=== PATIENT | female | born 1945 | race Caucasian/White ===

== ENCOUNTER 2019-06-05 13:08 | Outpatient (RCR) | payer MEDICARE, MEDICAID, SELFPAY | END 2019-06-16 23:59 | disposition home or self-care (01) | LOC: LAB 13:08 | PROVIDERS: Family Provider Family Medicine; PCP Family Medicine; Visit Provider Family Medicine | DX: I48.91 Unspecified atrial fibrillation (principal); M54.5 Low back pain | CPT/HCPCS: 85610 ==

== ENCOUNTER 2019-06-13 12:38 | Observation (INO) | payer MEDICARE, MEDICAID, SELFPAY ==
[2019-06-12 11:12] VITALS: BMI 27.1
[2019-06-13] VITALS (30 sets, daily range): BP systolic 112–163; BP diastolic 71–113; PULSE 97–142; RESP 10–30; TEMP 36.1–36.6; O2SAT 95–100
[2019-06-13 07:19] LABS: Glucose Point of Care 97 mg/dL (70-110)
[2019-06-13] MEDS: sodium chloride 0.9% 1,000 ML 30 ML IV (07:32)
--- NOTE | 2019-06-13 07:48 | P.ANES_ITS ---
Pre-Anesthetic Assessment Pre-Anesthetic Assessment: Height/Weight: Height 1.7 m Weight 78.471 kg Temp Pulse Resp BP Pulse Ox 97.1 F L 97 18 149/103 99 06/13/19 07:08 06/13/19 07:08 06/13/19 07:08 06/13/19 07:08 06/13/19 07:08 Proposed Procedure: Operation Date: 06/13/19 08:00 Proposed Procedures p Total Thyroidectomy(Not Applicable) - Luke Tomlinson MD s Direct Laryngoscopy with a true vocal cord injection(Not Applicable) - Luke Tomlinson MD Last intake: Intake Last Liquid Date 06/12/19 Last Liquid Time 16:30 Last Solid Date 06/12/19 Last Solid Time 16:30 Social: Social History: No alcohol and No tobacco Exam: Pre-Anes Outpt Exam: alert, oriented x 3, clear to auscultation bilaterally and regular rate & rhythm Airway: Submandibular: WNL Cervical ROM: WNL MP: 3 Dentition: Other (ok) History/ROS: No significant history except as noted Pulmonary: Pulmonary: Asthma, COPD and [place] CV/HEM: CV/HEM: Afib, CAD, CHF, HTN, ND and PVD : : Chronic renal Insufficiency Hepatic: Hepatic: None reported GI: GI: GERD (controlled) Metabolic: Metabolic: DM and Hyperlipidemia Musc/skel: Musc/skel: Lower Back Pain and OA/DJD Neuropsych: Neuropsych: Anxiety, Depression, Neuropathy (hands and feet) and TIA Anesthetic Plan: ASA status: IV Anesthesia: Anesthesia Evaluation and Ge neral Risk of > 500 ml blood loss (7ml/kg in children): No Meds/Allergies Current Medications: Current Medications Generic Name Dose Route Start Last Admin Trade Name Freq PRN Reason Stop Dose Admin Sodium Chloride 1,000 mls @ 30 ml s/hr 06/13/19 07:00 06/13/19 07:32 Sodium Chloride 0.9% IV 06/14/19 06:59 30 mls/hr .Q24H SANDRA Administration PFSH Anesthesia PFSH: Medical History (Updated 06/13/19 @ 07:49 by Camilo Garcia MD) Atrial fibrillation (Acute) CAD (coronary artery disease) (Acute) COPD (chronic obstructive pulmonary disease) (Acute) Heart attack (Acute) Heart failure (Acute) High cholesterol (Acute) Hypertension (Acute) Transient ischemic attack (TIA) (Acute) Social History (Updated 06/12/19 @ 11:11 by Cathy Mendosa) Smoking and tobacco status: never smoked Alcohol intake: never Data Anesthesia Other Labs: Laboratory Results - last 48 hr 06/13/19 07:15 POC Glucose 97 Cardiac Studies: No Data to Display
--- NOTE | 2019-06-13 08:35 | PM.HPUD ---
H&P update H&P Update: DATE OF SURGERY/PROCEDURE: 06/13/19 DATE H&P PERFORMED: 06/06/19 H&P UPDATE INFORMATION: H&P completed within last 30 days, No changes to prior documentation and H&P to be scanned into chart PREOP DIAGNOSIS: Left thyroid nodule with new onset left true vocal cord paralysis PRIMARY INDICATION FOR PROCEDURE: Left thyroid nodule suspicious for malignancy PLANNED PROCEDURE: Operation Date: 06/13/19 08:00 Proposed Procedures p Total Thyroidectomy(Not Applicable) - Luke Tomlinson MD s Direct Laryngoscopy with a true vocal cord injection(Not Applicable) - Luke Tomlinson MD Full H&P Medications/Allergies: Current Medications: Current Medications Generic Name Dose Route Start Last Admin Trade Name Freq PRN Reason Stop Dose Admin Sodium Chloride 1,000 mls @ 30 ml s/hr 06/13/19 07:00 06/13/19 07:32 Sodium Chloride 0.9% IV 06/14/19 06:59 30 mls/hr .Q24H SANDRA Administration Perinent History: Medical/Surgical History: Medical History (Updated 06/13/19 @ 07:49 by Camilo Garcia MD) Atrial fibrillation (Acute) CAD (coronary artery disease) (Acute) COPD (chronic obstructive pulmonary disease) (Acute) Heart attack (Acute) Heart failure (Acute) High cholesterol (Acute) Hypertension (Acute) Transient ischemic attack (TIA) (Acute) Social History: Social History Smoking and tobacco status: never smoked Alcohol intake: never
[2019-06-13] MEDS: fluorescein 1 mg Strip XX (10:08)
[2019-06-13] MEDS: EPINEPHrine 1 mg/mL INJ XX (10:10)
[2019-06-13] MEDS: neomycin-poly-bacitracin oint 28 gm 1 APPLIC TOPICAL ×2 (10:12→15:28)
[2019-06-13] MEDS: ceFAZolin 1,000 mg SDV 1000 MG IRRIGATION ×3 (10:27→14:58)
--- NOTE | 2019-06-13 11:47 | PM.OP ---
Operative Report Date of procedure: 06/13/19 Pre-op Diagnosis: Left thyroid nodule with new onset left true vocal cord paralysis Post-op diagnosis: same Post-op Findings: Large, goitrous left thyroid lobe Left recurrent laryngeal nerve identified and preserved intact Parathyroid glands x 2 identified and preserved in place Procedure Done: Left Hemithyroidectomy Microdirect laryngoscopy with injection laryngoplasty of left true vocal cord Implants: Left true vocal cord gel implant (0.7mL injected into left true vocal cord) Specimens removed/disposition: Left thyroid lobe Pathology: Left thyroid lobe Surgeon: Luke Tomlinson University Internship: Naveed Simms University Internship: Mildred Arenas Anesthesia: General Estimated blood loss (mL): 100 IV fluids (mL): 1,000 Complications: None Findings: Large, Goitrous left thyroid lobe Left recurrent laryngeal nerve identified and preserved intact Parathyroid glands x 2 identified and preserved intact Condition: stable Disposition: ICU Brief History: 73 yo wf with a h/o a large left thyroid lobe nodule who recently developed left true vocal cord paralysis. The patient desires surgical therapy. Procedure: The patient was identified in the preoperative holding area and was taken to the operating room where she was placed on the operating table in the supine position. Anesthesia was achieved with general endotracheal anesthesia with the nerve integrity monitor electrodes placed on the endotracheal tube. The Nirvana nerve monitoring system was placed on the patient, and a horizontal skin incision was marked out 2 fingerbreadths above the sternal notch which was then injected with local anesthesia. The patient was then prepped and draped in the usual sterile fashion. The incision was then made with a 15 blade and carried down through skin and subcutaneous tissues with electrocautery. The dissection proceeded through the platysma muscle until the strap muscles were identified. The strap muscles were then divided in the sagittal plane in the avascular midline superiorly and inferiorly and then the strap muscles were dissected off of the left thyroid lobe. The airway was identified both visually and to palpation. The harmonic scalpel was used to dissect the thyroid isthmus off of the trachea and then was used to divide the thyroid isthmus. At this point a circumferential dissection was made of the left thyroid lobe using the Pin-Digitala dissecting hemostat. The superior pole vessels were individually dissected free and clamped with ligaclips and divided. Left thyroid lobe was then rotated medially and the dissection proceeded in the left tracheoesophageal groove until the recurrent laryngeal nerve was identified. The recurrent nerve was then traced superiorly and inferiorly and was protected as Winn's ligament was divided with microbipolar forceps. Once the left thyroid lobe was removed, it was sent for frozen section analysis which came back as multinodular goiter without evidence of malignancy. Hemostasis was achieved in the neck with bipolar cautery. The patient's wound was then irrigated with copious amount of saline and was reinspected for hemostasis which was found to be adequate. At this point Gelfoam soaked in thrombin was placed in the left tracheoesophageal groove and a MAY drain was placed in the wound. The wound was then closed with interrupted 4-0 and 5-0 Monocryl and Dermabond and Steri-Strips on the skin. At this point the table was turned 90 degrees the patient's left. A silastic tooth guard was placed on the patient's maxillary teeth, and a surgical laryngoscope was advanced down the right oral cavity gutter under direct vision until the larynx came into view. A systematic inspection was made of the larynx which appeared to be normal. 0.7 mL of the gel injection laryngoplasty implant was injected into the left thyroarytenoid muscle posteriorly and lateral to the vocal process of the arytenoid cartilage. This was done using the operative laryngoscope and a 0 degree Scott pro surgical telescope. Once this was accomplished the patient was taken off suspension and the laryngoscope was atraumatically released and removed. The procedure was then terminated and control of the patient was returned to anesthesia where she underwent an uneventful reversal of anesthesia and extubation and was taken to the recovery room in stable condition. There were no operative or anesthetic complications
[2019-06-13] MEDS: fentaNYL 50 mcg/mL INJ 2mL IVP ×2 (12:01→12:06)
[2019-06-13] MEDS: morphine 4 mg/mL SDV 1 mL 2 MG IVP ×4 (12:18→14:02)
--- NOTE | 2019-06-13 13:03 | SUR.PHASEI ---
1240 PT TO ICU PER BED REPORT VERBALLY CALLED TO JANIS RN, PT ALERT ,STATES SHE HAS NO FAMILY HERE, STATES HER PAIN IS (MUCH BETTER) AT 8 NOW, FACE SCALE 2 PT TALKATIVE WITH STAFF IN ICU, NECK UNCHANGED WITH NO SWELLING OR HEMATOMA NOTED.
[2019-06-13] MEDS: sodium chloride 0.9% 1,000 ML 100 ML IV (13:18)
--- NOTE | 2019-06-13 14:13 | PM.PN ---
Subjective Subjective: Interval history: 73 yo wf who is day of surgery s/p left hemithyroidectomy. I was contacted by nursing because increased wound swelling. The patient denies shortness of breath, and is o/w without c/o. Medications: Reviewed: Yes Vitals/I&O/Wt Last Vital Signs Temp 98 F 06/13/19 12:30 Pulse 116 H 06/13/19 12:30 Resp 16 06/13/19 14:02 BP 134/97 06/13/19 12:30 Pulse Ox 97 06/13/19 12:30 06/12/19 06/13/19 06/13/19 22:59 06:59 14:59 Intake Total 1300 / 1300 Output Total 500 / 500 Balance 800 / 800 Weight last 48 hrs Weight 78.471 kg Weight 78.471 kg Physical Exam Const: COMMON NORMALS: no apparent distress, oriented x3 and alert ORIENTATION/CONSCIOUSNESS: Yes oriented to person HENMT: COMMON NORMALS: normocephalic, head/scalp atraumatic and external nose normal HEAD & SCALP: normal to inspection, normocephalic and atraumatic FACE & SINUS: normal facial exam NOSE: external nose normal Eye: COMMON NORMALS: PERRL and conjunctivae normal GENERAL EYE: normal appearance of both eyes CONJUNCTIVA: Yes conjunctivae normal PUPIL: Yes PERRL Neck/C-Spine: COMMON NORMALS: full ROM and no lymphadenopathy OTHER: Wound Exma: there is swelling and fluctuance of the neck wound c/w hematoma. Lymph: LYMPHATIC: no lymphadenopathy noted and no lymphedema noted Chest: COMMONS NORMALS: inspection of chest normal and palpation of chest normal Resp: COMMON NORMALS: normal respiratory effort, no retractions and no use of accessory muscles Cardio: COMMON NORMALS: regular rate and regular rhythm RATE: regular rate RHYTHM: regular rhythm GI: COMMON NORMALS: normal to inspection, nondistended, normoactive bowel sounds Extremity: COMMON NORMALS: normal to inspection Neuro: COMMON NORMALS: oriented x3 and CN's II-XII intact bilaterally SENSORIUM/ORIENTATION: Yes alert and Yes oriented to person CRANIAL NERVES: Yes CN III (oculomotor), Yes CN IV (trochlear), Yes CN V (trigeminal), Yes CN (abducens) and Yes CN IX and CN X (glossopharyngeal/vagus) Skin: COMMON NORMALS: no rashes or lesions noted GENERAL SKIN EXAM: no rashes or lesions noted Urinary Catheter Management^: Engel Latex: Cath Placed During This Visit: no A&P Additional A&P Information Impression: Day of surgery s/p wound left hemithyroidectomy with an apparent wound hematoma Plan: Surgical incision and drainage with control of post operative bleeing under general anesthesia. I discussed this with the patient. She expressed understanding. Attestations Medical Necessity Statement*: The patient is admitted for observation of her airway post operatively. Coding Level of Care Code Acute Physical Plant Manager for Marina Rollins
--- NOTE | 2019-06-13 15:39 | P.OP_ITS ---
Operative Report Date of procedure: 06/13/19 Pre-op Diagnosis: Wound hematoma Pre-op Diagnosis: Wound hematoma Post-op diagnosis: same Post-op Findings: Anterior neck wound hematoma without airway obstruction Procedure Done: Incision and drainage of post op wound hematoma following left hemithyroidectomy Implants: None Specimens removed/disposition: None Pathology: none sent Surgeon: Luke Tomlinson Tester Compressed Gases: Rubina Arenas Tester Compressed Gases: Naveed Simms Anesthesia: General Estimated blood loss (mL): 100 IV fluids (mL): 500 Urine output (mL): 300 Complications: None Findings: Large, organized clot in the left/anterior neck Slow active bleeding in the inferior portion of the left thyroid bed Recurrent laryngeal nerve identified in place and intact Condition: stable Disposition: ICU Brief History: 73 yo wf who is day of surgery s/p left hemithyroidectomy who developed a post op wound hematoma. The patient presents for surgical evacuation and control of post op bleeding. Procedure: The patient was identified in the intensive care unit was taken to the operating room where she was placed on the operating table in the supine position. Anesthesia was obtained with general endotracheal anesthesia. The patient was then prepped and draped in the usual sterile fashion. The anterior neck wound was opened with Metzenbaum scissors, and a large hematoma was immediately encountered. The hematoma was evacuated with blunt finger dissection, suction, and irrigation. Once the wound had been evacuated and cleaned it was inspected sequentially for any significant bleeding. There was a steady ooze of blood from the inferior portion of the inferior thyroid bed on the left. This was controlled with medium ligaclips and bipolar cautery. The wound was then irrigated and was inspected carefully for any noted bleeding and none was noted. The wound was then packed with Gelfoam soaked in thrombin and Surgicel. A flat MAY drain was placed in the wound, and the wound was then closed with running and interrupted 4-0 Monocryl sutures subcu and 5-0 Monocryl sutures as subcuticular sutures. The wound was finally closed with Dermabond and Steri-Strips. At this point the procedure was terminated and control of the patient was returned to anesthesia where she underwent an uneventful reversal of anesthesia and extubation and was taken to the intensive care unit in stable condition. There were no operative or anesthetic complications.
--- NOTE | 2019-06-13 16:10 | PC.NURSE ---
At 1335 noted edema above incision line on anterior neck. Notified Dr. Tomlinson of edema and some drainage of blood coming from site of kevin drain. Had drained 30ml if blood from kevin and compressed at 1320. Pt had c/o of pain in head and in neck and had medicated with Morphine 2mg twice, per JUL.
--- NOTE | 2019-06-13 16:34 | PC.NURSE ---
1535 pt returned from surgery, awake alert, no further c/o pain. Neck above incision line has little to no edema now. Miller drain from neck incision connected to wall suction as ordered.
[2019-06-13] MEDS: lactated ringers 1,000 ML 100 ML IV (16:45)
[2019-06-13 17:34] LABS: Glucose Point of Care 142 mg/dL (70-110)
[2019-06-13] MEDS: ferrous sulfate EC 325 mg Tablet PO (17:49)
[2019-06-13] MEDS: topiramate 100 mg Tablet PO (17:49)
--- NOTE | 2019-06-13 19:37 | PC.NURSE ---
bedside report rcvd at this time. pt sitting up in bed resting c eyes closed even non labored respirations. incision to medial neck c kevin drain to low wall suction. 200 cc blood in container at this time. vss per cm. pt denies pain or distress. call light within reach. lincoln arnold.
--- NOTE | 2019-06-13 20:04 | PC.NURSE ---
clarification on coumadin dose from [facility] at [place]. pt currently taking 3mg M, W, F and 2mg T, TH, Sat, Sun. pharmacy notified. carol villarreal
--- NOTE | 2019-06-13 21:41 | PC.NURSE ---
msg left for dr ramirez regarding lovenox order and continuing comudin. lincoln arnold.
[2019-06-13] MEDS: enoxaparin 80 mg/0.8 mL Syringe SUBCUT (21:53)
[2019-06-14] VITALS (19 sets, daily range): BP systolic 125–156; BP diastolic 75–98; PULSE 70–171; RESP 15–25; TEMP 36.6–36.8; O2SAT 93–99
[2019-06-14] MEDS: morphine 4 mg/mL SDV 1 mL 1 MG IVP (03:08)
[2019-06-14] MEDS: lactated ringers 1,000 ML 100 ML IV ×2 (03:09→12:19)
--- NOTE | 2019-06-14 05:15 | PM.PN ---
Subjective Subjective: Interval history: 73 yo wf who is POD #1 s/p left hemithyroidectomy with injection laryngoplasty of left true vocal cord whose post op course was complicated by a post operative wound hematoma. The patient underwent surgical evacuation of the wound. She is doing well this morning. She restarted her Lovenox last night and has done well overnight. Vitals/I&O/Wt Last Vital Signs Temp 97.9 F 06/14/19 02:56 Pulse 102 H 06/14/19 04:00 Resp 25 H 06/14/19 04:00 BP 136/81 06/14/19 04:00 Pulse Ox 98 06/14/19 04:00 06/13/19 06/13/19 06/14/19 14:59 22:59 06:59 Intake Total 1300 / 1300 1050 / 2350 1000 / 3350 Output Total 500 / 500 300 / 800 Balance 800 / 800 750 / 1550 1000 / 2550 Weight last 48 hrs Weight 78.471 kg Weight 78.471 kg Physical Exam Const: COMMON NORMALS: no apparent distress and oriented x3 HENMT: COMMON NORMALS: normocephalic, head/scalp atraumatic, external ears normal, external nose normal and moist oral mucous membranes HEAD & SCALP: normal to inspection, normocephalic and atraumatic FACE & SINUS: normal facial exam NOSE: external nose normal EXTERNAL EAR: Yes external ears normal Eye: COMMON NORMALS: EOMs intact bilaterally and conjunctivae normal CONJUNCTIVA: Yes conjunctivae normal Neck/C-Spine: COMMON NORMALS: no lymphadenopathy GENERAL: Yes normal visual inspection and Yes other (The neck wound is intact and without swelling or erythema. ) Lymph: LYMPHATIC: no lymphadenopathy noted Chest: COMMONS NORMALS: inspection of chest normal Resp: COMMON NORMALS: normal respiratory effort and no use of accessory muscles Cardio: COMMON NORMALS: regular rate and regular rhythm RATE: regular rate RHYTHM: regular rhythm GI: COMMON NORMALS: normal to inspection, nondistended, normoactive bowel sounds Extremity: COMMON NORMALS: normal to inspection Neuro: COMMON NORMALS: oriented x3 and CN's II-XII intact bilaterally (The patient has persistent hoarsenss that is unchanged from preop.) Psych: COMMON NORMALS: mental status grossly normal Urinary Catheter Management^: Engel Latex: Cath Placed During This Visit: no Data Other data: Final path pending A&P Additional A&P Information Impression: 1) Left thyroid nodule with new onset left true vocal cord paralysis - now doing well s/p left hemithyroidectomy with post op wound hematoma resolved 2) h/o Atrial fibrillation - stable Plan: 1) Continued observation Anticipate discharge this afternoon Will start speech therapy as an outpatient 2) Lovenox and Coumadin restarted The patient is to f/u with her PCP to regulate her Coumadin Attestations Medical Necessity Statement*: The patient requires observation of her airway. Discharge is expected this afternoon. Coding Level of Care Code Acute Technical Support Consultant for Marina Rollins
[2019-06-14] MEDS: ferrous sulfate EC 325 mg Tablet PO ×2 (08:07→18:50)
[2019-06-14] MEDS: venlafaxine ER (24HR) 37.5 mg Capsule PO (08:07)
[2019-06-14] MEDS: docusate sodium 100 mg Capsule PO (08:07)
[2019-06-14] MEDS: pantoprazole DR 40 mg Tablet PO (08:07)
[2019-06-14] MEDS: atorvastatin 40 mg Tablet PO (08:08)
[2019-06-14] MEDS: metoprolol succinate ER (24 HR) 25 mg Tablet PO (08:08)
[2019-06-14] MEDS: topiramate 100 mg Tablet PO ×2 (08:08→18:51)
[2019-06-14] MEDS: dilTIAZem ER (24HR) 120 mg Capsule PO (08:08)
[2019-06-14] MEDS: enoxaparin 80 mg/0.8 mL Syringe SUBCUT ×2 (11:13→22:10)
[2019-06-14] MEDS: HYDROcodone-acetaminophen 5-325 mg Tablet 1 TAB PO ×2 (12:20→22:12)
--- NOTE | 2019-06-14 13:19 | PC.CHAP ---
Pastoral Care Encounter/Spiritual Assessment Type of Contact [] Declined biology teacher visit [] Patient/Family/Request visit [] Outpatient visit [] Follow-up visit [] Physician referral [] Code/Alert [] Routine visit [] Staff referral [] Actively dying [] Patient sleeping [] Family support [] [] Out of room [] Palliative care [] [] Receiving care in room [] Pre-surgical visit [] Trauma [] Long length of stay [] ICU visit [] Other: Relational/Emotional Strength [] Patient feels connected with others/family/visitors/staff [] Distress [] Loneliness/isolation [] Abandonment Spirituality of Patient [] Person of Tatiana [] Attends Methodist of their [place] [] Believes in Prayer [] Reads Bible or Islam materials [] There are Spiritual issues to be addressed Zinc Skimmer Interventions [] Prayer [] Active listening [] Non-anxious presence [] Spiritual/emotional support [] Crisis/trauma care [] Spiritual counseling [] Bereavement support [] Provided bereavement packet [] Provided Bible/devotional materials [] Provided toy/stuffed animal, coloring book to patient or family member [] Completed spiritual assessment [] Provided Communion [] Anointing/[place] [] Salvation [] Other: Impact on Illness or Injury [] Angry [] Fearful [] Anxious [] Often cries [] Exhaustion [] Unable to work [] Unable to attend jewish [] Unable to walk/stand [] Unable to read [] Unable to drive [] Unable to eat/drink [] Unable to sleep [] Unable to be with family [] Other: Summary Time spent with patient
--- NOTE | 2019-06-14 13:22 | PC.CHAP ---
Pastoral Care Encounter/Spiritual Assessment Type of Contact [] Declined outreach assistant visit [] Patient/Family/Request visit [] Outpatient visit [] Follow-up visit [] Physician referral [] Code/Alert [] Routine visit [] Staff referral [] Actively dying [] Patient sleeping [] Family support [] [] Out of room [] Palliative care [] [] Receiving care in room [] Pre-surgical visit [] Trauma [] Long length of stay [] ICU visit [] Other: Relational/Emotional Strength [] Patient feels connected with others/family/visitors/staff [] Distress [] Loneliness/isolation [] Abandonment Spirituality of Patient [] Person of Tatiana [] Attends Gnosticist of their [place]iana [] Believes in Prayer [] Reads Bible or Pentecostalism materials [] There are Spiritual issues to be addressed Title Officer Interventions [] Prayer [] Active listening [] Non-anxious presence [] Spiritual/emotional support [] Crisis/trauma care [] Spiritual counseling [] Bereavement support [] Provided bereavement packet [] Provided Bible/devotional materials [] Provided toy/stuffed animal, coloring book to patient or family member [] Completed spiritual assessment [] Provided Communion [] Anointing/[place] [] Salvation [] Other: Impact on Illness or Injury [] Angry [] Fearful [] Anxious [] Often cries [] Exhaustion [] Unable to work [] Unable to attend baptist [] Unable to walk/stand [] Unable to read [] Unable to drive [] Unable to eat/drink [] Unable to sleep [] Unable to be with family [] Other: Summary The patient was sleeping. Time spent with patient
--- NOTE | 2019-06-14 14:46 | ANE.PACU ---
 Inpatient post-anesthesia follow up: Airway intact: Yes Vital signs: Temperature 97.8 F Pulse Rate [Left] 116 Pulse Rate [Right] 97 Pulse Rate 112 Respiratory Rate 15 Blood Pressure [Le ft Arm] 134/97 Blood Pressure 132/85 Pulse Oximetry 95 Oxygen Delivery Me thod [ Room Air Current Rate & Del rock] Oxygen Delivery Me thod Room Air Oxygen Flow Rate [ Current Rate 1 & Delivery] Oxygen Flow Rate 1 Fraction of Inspir ed Oxygen Hydration adequate: Yes Nausea and vomiting: No Pain level: 3 Mental status: Baseline
[2019-06-14 16:36] LABS: INR 1.36 (0.8-1.2)
--- NOTE | 2019-06-14 16:38 | PM.PN ---
Subjective Subjective: Interval history: 73 yo wf who is POD #1 s/p Left hemithyroidectomy who reports that she is doing well. She reports that her swallowing has improved compared to preop. She reports that, while she continues to have hoarseness, it is improved compared to her preop voice. She is o/w without c/o. Vitals/I&O/Wt Last Vital Signs Temp 97.8 F 06/14/19 12:00 Pulse 112 H 06/14/19 12:00 Resp 15 06/14/19 12:00 BP 132/85 06/14/19 12:00 Pulse Ox 95 06/14/19 12:00 06/14/19 06/14/19 06/14/19 06:59 14:59 22:59 Intake Total 1000 / 3350 1396.667 / 1396.667 Output Total 850 / 1650 500 / 500 Balance 150 / 1700 896.667 / 896.667 Physical Exam Const: COMMON NORMALS: no apparent distress GENERAL APPEARANCE: cooperative, comfortable and well developed ORIENTATION/CONSCIOUSNESS: Yes awake and Yes oriented to person HENMT: COMMON NORMALS: normocephalic, head/scalp atraumatic and external nose normal HEAD & SCALP: normocephalic and atraumatic FACE & SINUS: normal facial exam NOSE: external nose normal Eye: COMMON NORMALS: conjunctivae normal CONJUNCTIVA: Yes conjunctivae normal Neck/C-Spine: COMMON NORMALS: no lymphadenopathy GENERAL: Yes other (The neck wound is intact and without swelling.) Chest: COMMONS NORMALS: inspection of chest normal and palpation of chest normal Resp: COMMON NORMALS: normal respiratory effort Cardio: COMMON NORMALS: regular rate and regular rhythm RATE: regular rate RHYTHM: regular rhythm GI: COMMON NORMALS: normal to inspection, nondistended, normoactive bowel sounds Neuro: SENSORIUM/ORIENTATION: Yes oriented to person Psych: COMMON NORMALS: mental status grossly normal Skin: COMMON NORMALS: skin turgor normal GENERAL SKIN EXAM: turgor normal Urinary Catheter Management^: Engel Latex: Cath Placed During This Visit: no Data Other data: Final path pending A&P Additional A&P Information Impression: 1) 73 yo wf who is POD #1 s/p left hemithyroidectomy doing well 2) Hoarsenss: the patient had preop left true vocal cord paralysis. Her voice and swollowing are improved following Injection Laryngoplasty of the left true vocal cord 3) Atrial Fibrillation: The patient has restarted her Lovenox and Coumadin at her preop levels Plan: 1) Post Op Left Hemithyroidectomy: the patient is to be discharged to home this afternoon. The patient is to empty her MAY drain BID and is to record output. She will f/u in my office on 06/16/19 @ 10:00 for possible drain removal. She is to contact me for any other problems. 2) Hoarseness: I recommend voice rest for one week. We will send the patient for voice therapy post operatively to see if we can improve her voice further. 3) We will obtain daily INRs at the senior care. She will continue her Lovenox until her INR is between 2 and 3. She will continue her po Coumadin at her preop level. I contacted Nunu Arthur PA-C today and she will follow Ms Tinoco as an outpatient. Attestations Medical Necessity Statement*: The patient was observed as an inpatient to monitor her airway. Coding Level of Care Code Acute Picture Booker for Marina Rollins
--- NOTE | 2019-06-14 17:42 | PC.NURSE ---
garcia catheter discontinued with cath tip intact, tolerated well, drain tube from thyroidectomy site placed on bulb per MD request. no c/o pain or distress. MMorgan RN
--- NOTE | 2019-06-14 18:15 | PC.NURSE ---
patient ready for discharge as MD orders, contacted Emmy Waller of patient d/c from her and returning to this facility, was informed by nurse Molly ZHOU that the facility will not accept patients after 400pm even if it is a returning patient. ICU charge nurse informed and patient told also. MMorgan RN
--- NOTE | 2019-06-14 18:31 | PC.NURSE ---
Dr Tomlinson [place] [facility] [place] pt to medical floor and continue all pertinent core measure orders. SHERWIN with saline lock, continue lovenox injections, po meds and regular diet, draw INR in AM and call MD with results, then may discharge back to [facility] in AM. MMorgan RN
--- NOTE | 2019-06-14 20:13 | PC.NURSE ---
report called to aric rizo at this time. pt transported to bed 261 via wc . pt oob to void prior to transfer. discussed care c dr. ramirez who agreed to leave piv out at this time. pending dc in am . steph.
--- NOTE | 2019-06-14 20:20 | PC.NURSE ---
Pt arrived to room via wheelchair from ICU, introduction of staff and aidet. Pt assisted to bed per staff, and oriented to room, bed, tv and call light systems. Assessment of pt completed pt's needs met.
[2019-06-15] VITALS: BP 158/81; PULSE 103; RESP 18; TEMP 36.5; O2SAT 96
[2019-06-15 04:00] VITALS: BP 138/89; PULSE 102; RESP 19; TEMP 36.8; O2SAT 92
--- NOTE | 2019-06-15 06:41 | P.PN_ITS ---
Subjective Subjective: Interval history: 73 yo wf who is POD #2 s/p left hemithyroidectomy for left thyroid nodule with new onset left true vocal cord paralysis. The patient reports that she is doing well this morning. She reports that her voice and swollowing are improved, and she is pleased with the results of surgery. She is without new c/o this morning. Medications: Reviewed: Yes Vitals/I&O/Wt Last Vital Signs Temp 98.2 F 06/15/19 04:00 Pulse 102 H 06/15/19 04:00 Resp 19 H 06/15/19 04:00 BP 138/89 06/15/19 04:00 Pulse Ox 92 06/15/19 04:00 06/14/19 06/14/19 06/15/19 14:59 22:59 06:59 Intake Total 1396.667 / 1396.667 480 / 1876.667 Output Total 500 / 500 400 / 900 750 / 1650 Balance 896.667 / 896.667 80 / 976.667 -750 / 226.667 Physical Exam Const: COMMON NORMALS: oriented x3 HENMT: COMMON NORMALS: normocephalic, head/scalp atraumatic and external ears normal HEAD & SCALP: normocephalic and atraumatic EXTERNAL EAR: Yes external ears normal Eye: COMMON NORMALS: conjunctivae normal CONJUNCTIVA: Yes conjunctivae normal Neck/C-Spine: GENERAL: Yes normal visual inspection, Yes trachea midline and Yes other (The neck wound is clean, dry, intact, and without swelling.) CERVICAL SPINE: Yes cervical ROM normal Lymph: LYMPHATIC: no lymphadenopathy noted Chest: COMMONS NORMALS: inspection of chest normal Resp: COMMON NORMALS: normal respiratory effort and no use of accessory muscles Cardio: COMMON NORMALS: regular rhythm and S1 normal heart sound RHYTHM: regular rhythm HEART SOUNDS: S1 normal GI: COMMON NORMALS: normal to inspection, nondistended, normoactive bowel sounds Extremity: COMMON NORMALS: normal to inspection Neuro: COMMON NORMALS: oriented x3, moves all extremities and no focal motor deficits Psych: COMMON NORMALS: mental status grossly normal, thought process normal and cooperative THOUGHT PROCESS: normal thought process Skin: COMMON NORMALS: no rashes or lesions noted and skin turgor normal GENERAL SKIN EXAM: no rashes or lesions noted and turgor normal Urinary Catheter Management^: Engel Latex: Cath Placed During This Visit: no Data Other data: Final Path Pending A&P Additional A&P Information Impression: 1) 73 yo wf who is POD #1 s/p left hemithyroidectomy doing well with final path pending. 2) H/O Atrial Fibrillation - the patient is currently on Lovenox and her preop dose of Coumadin and is stable. Plan: 1) D/C to the residential. Her MAY drain was not holding a seal and was discontinued this morning. She is to f/u with me on 06/19/2019 and as needed for any problems. I recommend voice rest for one week. 2) She is to continue her Lovenox until her INR is between 2 and 3. She is to continue her preop dose of Coumadin. She will have daily INR levels drawn in the custodial until she is off Lovenox. Her discharge planning is o/w as previously noted. Attestations Medical Necessity Statement*: The patient required inpatient care for observation of her airway. Coding Level of Care Code Acute Clinical Biostatistician for Marina Rollins
--- NOTE | 2019-06-15 06:53 | PM.OPSURHP ---
Providers/Chief Complaint Admitting Physician: Dr. Luke Tomlinson MD Referring Physican: Dr. Dev Arthur MD Primary Care Provider: Dev Arthur MD Chief Complaint: thyroidectomy Large left thyroid nodule with new onset left true vocal cord paralysis with suspicion of malignancy of the left thyroid nodule. History of Present Illness Trini Tinoco is a 73 year old female with a h/o a large left thyroid nodule who developed a new onset left true vocal cord paralysis. The patient has had negative FNA biopsies of the left thyroid nodule, but the patient was concerned about possible malignancy in the nodule given this new symptom. The patient desires surgical therapy. Review of Systems General: Reports: 10 or more systems reviewed and unremarkable except in HPI and below Medications/Allergies Home Medications Medication Instructions Recorded Confirmed Last Taken Type Laxative Feminine 5 mg PO DAILY 06/12/19 06/13/19 06/12/19 History Physicians EZ Use B-12 1 ml IM DIRECTED 06/12/19 06/13/19 06/12/19 History aspirin 81 mg PO DAILY 06/12/19 06/12/19 06/06/19 History atorvastatin 40 mg PO DAILY 06/12/19 06/13/19 06/12/19 History bisacodyl 5 mg PO DAILY 06/12/19 06/13/19 06/12/19 History diltiazem HCl 120 mg PO DAILY 06/12/19 06/13/19 06/12/19 History docusate sodium [DOK] 100 mg PO DAILY 06/12/19 06/13/19 06/12/19 History ferrous sulfate 325 mg PO BID 06/12/19 06/13/19 06/12/19 History hydrocodone-acetaminophen 1 tab PO Q4H PRN 06/12/19 06/13/19 06/12/19 History metoprolol succinate 25 mg PO DAILY 06/12/19 06/13/19 06/12/19 08:00 History nitroglycerin 0.4 mg SUBLINGUAL Q5M PRN 06/12/19 06/12/19 Unknown History nitroglycerin 0.4 mg TOPICAL DAILY 06/12/19 06/12/19 Unknown History pantoprazole 40 mg PO DAILY 06/12/19 06/13/19 06/12/19 History potassium chloride 10 meq PO DAILY 06/12/19 06/13/19 06/12/19 History topiramate 100 mg PO BID 06/12/19 06/13/19 06/12/19 History venlafaxine 37.5 mg PO DAILY 06/12/19 06/13/19 06/12/19 History warfarin 2 mg PO DAILY 06/12/19 06/12/19 06/07/19 History Allergies Allergy/AdvReac Type Severity Reaction Status Date / Time ibuprofen Allergy Unknown Verified 06/13/19 16:37 levofloxacin [From Levaquin] Allergy ADR-Nausea Verified 06/13/19 16:37 Sulfa (Sulfonamide Allergy Unknown Verified 06/13/19 16:37 Antibiotics) microdentin Allergy ADR-Nausea Uncoded 06/13/19 06:58 PFSH PFSH: Statuses (acute, chronic, etc) shown below reflect problem list status as previously entered and may not be historically accurate Medical History (Updated 06/13/19 @ 07:49 by Camilo Garcia MD) Atrial fibrillation (Acute) CAD (coronary artery disease) (Acute) COPD (chronic obstructive pulmonary disease) (Acute) Heart attack (Acute) Heart failure (Acute) High cholesterol (Acute) Hypertension (Acute) Transient ischemic attack (TIA) (Acute) Social History (Updated 06/12/19 @ 11:11 by Cathy Mendosa) Smoking and tobacco status: never smoked Alcohol intake: never Vital Signs Vitals Signs: Last Vital Signs Temp 98.2 F 06/15/19 04:00 Pulse 102 H 06/15/19 04:00 Resp 19 H 06/15/19 04:00 BP 138/89 06/15/19 04:00 Pulse Ox 92 06/15/19 04:00 Physical Exam Const: COMMON NORMALS: no apparent distress and oriented x3 HENMT: COMMON NORMALS: normocephalic, hearing grossly normal bilaterally, external ears normal, EAC's normal, TM's normal bilaterally, external nose normal, nasal mucous membranes and turbinates normal, moist oral mucous membranes and oropharynx normal HEAD & SCALP: normal to inspection and atraumatic FACE & SINUS: normal facial exam and face symmetric Eye: COMMON NORMALS: PERRL, EOMs intact bilaterally and conjunctivae normal GENERAL EYE: normal appearance of both eyes Neck/C-Spine: COMMON NORMALS: full ROM and no lymphadenopathy THYROID: asymmetrical and solitary palpable nodule on the left CAROTIDS: Yes normal carotid upstroke Lymph: LYMPHATIC: no lymphadenopathy noted Chest: COMMONS NORMALS: inspection of chest normal and palpation of chest normal Resp: COMMON NORMALS: normal respiratory effort, no retractions, no use of accessory muscles and clear to auscultation bilaterally Cardio: COMMON NORMALS: regular rate and regular rhythm GI: COMMON NORMALS: normal to inspection, nondistended, normoactive bowel sounds Extremity: COMMON NORMALS: normal to inspection and normal capillary refill Neuro: COMMON NORMALS: oriented x3, moves all extremities, no focal motor deficits and deep tendon reflexes 2+ bilaterally Psych: COMMON NORMALS: mental status grossly normal and cooperative A&P Additional A&P Information Impression: 73 yo wf with a large left thyroid nodule with new onset left true vocal cord paralysis suspicious for possible malignancy Plan: left hemithyroidectomy with possible total thyroidectomy, possible anterior neck dissection, and direct laryngoscopy with injection laryngoplasty of the left true vocal cord under general anesthesia. Coding Level of Care Code Acute Loading Machine Tool Setter for Marina Rollins
--- NOTE | 2019-06-15 06:58 | PC.NURSE ---
DR BLACKWOOD HERE TO SEE PT, DRAIN LEAKING AND DR ZURITA
[2019-06-15] MEDS: docusate sodium 100 mg Capsule PO (09:13)
[2019-06-15] MEDS: pantoprazole DR 40 mg Tablet PO (09:13)
[2019-06-15] MEDS: metoprolol succinate ER (24 HR) 25 mg Tablet PO (09:13)
[2019-06-15] MEDS: dilTIAZem ER (24HR) 120 mg Capsule PO (09:13)
[2019-06-15] MEDS: topiramate 100 mg Tablet PO (09:13)
[2019-06-15] MEDS: ferrous sulfate EC 325 mg Tablet PO (09:13)
[2019-06-15] MEDS: enoxaparin 80 mg/0.8 mL Syringe SUBCUT (09:18)
[2019-06-15] MEDS: venlafaxine ER (24HR) 37.5 mg Capsule PO (09:45)
== END 2019-06-15 10:30 | disposition skilled nursing facility (03) ==
LOC: ICU 14:18 → MEDSURG 06-14 20:14
PROVIDERS: Admitting Provider Specialist; Family Provider Family Medicine; PCP Family Medicine; Visit Provider Specialist
PROC: (CPT 60240; principal; 2019-06-13 08:00)
PROC: 0CJS8ZZ Inspection of Larynx, Via Natural or Artificial Opening Endoscopic (ICD-10-PCS; CPT 21501; 2019-06-13 08:00)
DX: E04.1 Nontoxic single thyroid nodule (principal); Z79.82 Long term (current) use of aspirin; Z79.891 Long term (current) use of opiate analgesic; I48.91 Unspecified atrial fibrillation; I25.10 Atherosclerotic heart disease of native coronary artery without angina pectoris; J44.9 Chronic obstructive pulmonary disease, unspecified; I11.0 Hypertensive heart disease with heart failure; I50.9 Heart failure, unspecified; Z86.73 Personal history of transient ischemic attack (TIA), and cerebral infarction without residual deficits; S10.93XA Contusion of unspecified part of neck, initial encounter; X58.XXXA Exposure to other specified factors, initial encounter; I25.2 Old myocardial infarction; K21.9 Gastro-esophageal reflux disease without esophagitis; E11.40 Type 2 diabetes mellitus with diabetic neuropathy, unspecified; E78.5 Hyperlipidemia, unspecified; M19.90 Unspecified osteoarthritis, unspecified site
CPT/HCPCS: 21501; 31570; 60220; 12345; 36416; 82962; 85610; 88307; 96360; 96361; 96365; 96366; 96372; 96375; G0378; J0171; J0330; J0690; J1100; J1650; J2001; J2270; J2704; J3010; J3490; J7030

== ENCOUNTER 2019-06-18 08:45 | Outpatient (RCR) | payer MEDICARE, MEDICAID, SELFPAY ==
[2019-06-18 09:19] LABS: INR 1.68 (0.8-1.2)
== END 2019-07-15 23:59 | disposition home or self-care (01) ==
LOC: LAB 08:45
PROVIDERS: Family Provider Family Medicine; PCP Family Medicine; Visit Provider Family Medicine
DX: I48.91 Unspecified atrial fibrillation (principal)
CPT/HCPCS: 85610

== ENCOUNTER → 2020-05-15 15:49 | Outpatient (BNVA) | payer MEDICARE, MEDICAID, SELFPAY | PROVIDERS: Family Provider Family Medicine; PCP Family Medicine; Visit Provider Nurse Practitioner Family | DX: N39.0 Urinary tract infection, site not specified (principal) | CPT/HCPCS: 81003; 87077; 87086; 87184 ==

== ENCOUNTER 2020-10-18 10:20 | Outpatient (CLI) | payer MEDICARE, MEDICAID, SELFPAY ==
--- NOTE | 2020-10-18 10:25 | XR_ITS ---
WS: [id number] Chest 2 views, 10/18/2020 Clinical Data: R06.02 - Shortness of breath Comparison: Portable chest, 04/18/2018. Findings: No nodules, masses or effusions are seen. The heart is normal. The pulmonary vascularity is not increased. No pneumonia or pneumothorax is seen. The aortic arch and descending aorta show tortu osity There is a hiatal hernia behind the heart. XR/XR chest 2V* [id number] Impression: Atherosclerosis.
== END 2020-10-18 10:21 | disposition home or self-care (01) ==
PROVIDERS: Family Provider Family Medicine; PCP Family Medicine; Visit Provider Nurse Practitioner Family
DX: R06.02 Shortness of breath (principal); I48.11 Longstanding persistent atrial fibrillation; I70.90 Unspecified atherosclerosis
CPT/HCPCS: 71046

== ENCOUNTER 2020-12-06 13:20 | Outpatient (CLI) | payer MEDICARE, MEDICAID, SELFPAY ==
--- NOTE | 2020-12-06 13:30 | USCV_ITS ---
Trini Tinoco Age: 75 Gender: F : 1945 Exam Date: 12/06/2020 13:51 Ordering Phys: Leigha Angel Technologist: Maria Fernanda Smart Exam Location: [facility] [place] Indication: shortness of breath BP: / HR: 64 Rhythm: Sinus Technical Quality: Good MEASUREMENTS (Male / Female) Normal Values 2D ECHO LV Diastolic Diameter PLAX 3.9 cm 4.2 - 5.9 / 3.9 - 5.3 cm LV Systolic Diameter PLAX 2.9 cm IVS Diastolic Thickness 1.2 cm 0.6 - 1.0 / 0.6 - 0.9 cm IVS Systolic Thickness 1.1 cm LVPW Diastolic Thickness 0.7 cm 0.6 - 1.0 / 0.6 - 0.9 cm LVPW Systolic Thickness 1.5 cm LVOT Diameter 2.0 cm LV Ejection Fraction 2D Teich 51.9 % LV Ejection Fraction MOD 2C 77.3 % LV Ejection Fraction 2C AL 76.9 % LA Diameter 4.1 cm LA Width 3.6 cm LA Height 5.5 cm RA Width 5.6 cm RA Height 5.7 cm Aorta at Sinotubular Diameter 3.6 cm M-MODE LV Diastolic Diameter MM 3.8 cm 4.2 - 5.9 / 3.9 - 5.3 cm LV Systolic Diameter MM 2.7 cm LV Ejection Fraction MM Teich 57.0 % IVS Diastolic Thickness MM 1.1 cm 0.6 - 1.0 / 0.6 - 0.9 cm IVS Systolic Thickness MM 0.9 cm LVPW Diastolic Thickness MM 0.7 cm 0.6 - 1.0 / 0.6 - 0.9 cm LVPW Systolic Thickness MM 1.6 cm Aortic Annulus Diameter 3.1 cm LA Ao Ratio MM 1.4 MV E Point Septal Separation 0.8 cm DOPPLER AV Peak Velocity 94.0 cm/s LVOT Peak Velocity 67.0 cm/s AV Area Cont Eq vti 2.1 cm squared AV Area Cont Eq pk 2.2 cm squared MV Peak Velocity 97.0 cm/s MV Area PHT 5.1 cm squared Mitral E to A Ratio 2.7 MV E' Velocity 65.0 cm/s Mitral E to MV E' Ratio 8.5 Mitral E to LV E' Lateral Ratio 8.2 Mitral E to LV E' Septal Ratio 8.9 TR Peak Velocity 265.9 cm/s TR Peak Gradient 28.3 mmHg TR Mean Velocity 180.3 cm/s TR Mean Gradient 14.1 mmHg TR Velocity Time Integral 74.4 cm Right Atrial Pressure 3.0 mmHg Pulmonary Artery Systolic Pressu 31.3 mmHg PV Peak Velocity 50.0 cm/s RV Acceleration Time 0.1 s RV Ejection Time 0.3 s RV AcT/ET 0.4 FINDINGS Left Ventricle Normal left ventricular size, systolic function and wall thickness, with no regional wall motion abnormalities. Left ventricular ejection fraction is estimated at 65 %. Grade II diastolic dysfunction, moderately elevated filling pressures. Right Ventricle Mildly increased right ventricular size. Normal right ventricular systolic function. Right ventricular systolic pressure 41 mmHg. Right Atrium Moderately increased right atrial size. Right atrial pressure estimated at 3 mm Hg. Left Atrium Moderately increased left atrial size. Mitral Valve Mildly thickened mitral valve. No mitral valve stenosis. Mild to moderate mitral valve regurgitation. Aortic Valve Structurally normal trileaflet aortic valve. No aortic valve stenosis. Moderate aortic valve regurgitation. Tricuspid Valve Structurally normal tricuspid valve. No tricuspid valve stenosis. Severe tricuspid valve regurgitation. Pulmonic Valve Structurally normal pulmonic valve. No pulmonary valve stenosis. Mild pulmonary valve regurgitation. Pericardium Trivial pericardial effusion. Aorta Normal size aortic root and proximal ascending aorta. Normal sized inferior vena cava with normal respiratory variations. CONCLUSIONS 1. Normal left ventricular size, systolic function and wall thickness, with no regional wall motion abnormalities. Left ventricular ejection fraction is estimated at 65 %. Grade II diastolic dysfunction, moderately elevated filling pressures. 2. Mildly increased right ventricular size. Normal right ventricular systolic function. 3. Mild pulmonary hypertension with pulmonary artery pressure estimated at 41 mm Hg. 4. Severe tricuspid valve regurgitation. 5. Moderate aortic and mild to moderate mitral valve regurgitation. 6. Trivial pericardial effusion. 7. When compared to previous study dated 12/29/2013, there is severe tricuspid regurgitation now. Emani Grady MD (Electronically Signed) Final Date: 06 December 2020 19:24 S
== END 2020-12-06 13:21 | disposition home or self-care (01) ==
LOC: RAD 13:25
PROVIDERS: PCP Family Medicine; Visit Provider Nurse Practitioner Family
DX: R06.02 Shortness of breath (principal); I27.20 Pulmonary hypertension, unspecified; I08.3 Combined rheumatic disorders of mitral, aortic and tricuspid valves; I31.3 Pericardial effusion (noninflammatory)
CPT/HCPCS: 93306

== ENCOUNTER 2020-12-11 08:43 | Outpatient (CLI) | payer MEDICARE, MEDICAID, SELFPAY ==
[2020-12-11 09:00] VITALS: BMI 27.3
--- NOTE | 2020-12-11 10:01 | ECG_ITS ---
[facility] [place] Date: 2020-12-11 Pat Name: Trini Tinoco Department: Room: Gender: Female Front End Developer: : 1945 Requested By: Leigha Angel Order Number: [id number] Yasmeen MD: Clement Murrieta M.D. Interpretive Statements NAME OF STUDY: LEXISCAN SESTAMIBI STRESS TEST INDICATION: Shortness of Breath, PROCEDURE: At the baseline, the EKG revealed atrial fibrillation with a controlled ventricular response rate of 75 bpm. Poor R wave progression. Features of possible old anteroseptal myocardial infarction. Left axis deviation. Nonspecific T wave changes.. The baseline blood pressure was 152/89 mm Hg with a heart rate of 75 beats/min. Lexiscan was infused over a period of 20 seconds. A total of 0.4 milligrams of Lexiscan was infused. The stress phase was continued for a total of 5 minutes. Heart rate at the end of the stress phase was 92 with a blood pressure 124/76. The EKG at the peak infusion revealed no significant changes. Sestamibi was injected 20 seconds after the Lexiscan infusion. Blood pressure at the end of the recovery phase was 133/82 with a heart rate of 90 per minute. CONCLUSION: 1. No significant EKG changes with the LexiScan infusion 2. No LexiScan induced chest pain or cardiac arrhythmia 3. Normal blood pressure and heart rate response 4. Sestamibi/sestamibi perfusion scan pending; see separate report. Electronically Signed On 12-13-2020 9:44:31 CDT by Clement Murrieta M.D. [id number]
--- NOTE | 2020-12-11 10:02 | NMCV_ITS ---
NM kelly perf SPECT r/s* [id number] Trini Tinoco Age: 75 Gender: F : 1945 Exam Date: 12/11/2020 10:03 Ordering Phys: Leigha Angel Technologist: SONIA Faith Exam Location: [facility] Indications: SOB STRESS TEST Please see separate stress test report in Ephiphany for full findings IMAGE PROTOCOL Rest/Stress 1 Lexiscan Day Radiopharmaceutical Dose (mCi) Administration Site Administered by Rest: Tc-99m 10.9 IV SONIA Faith Sestamibi Stress:Tc-99m 32.8 IV SONIA Faith Sestamibi Rest: 11-Dec-2020 60 Discovery 630 Stress: 11-Dec-2020 45 Discovery 630 0.4mg Lexiscan. Images obtained in supine and prone position. SPECT RESULTS Technical Quality: Good Raw Data Analysis: Normal Image Corrections: Patient motion artifact - motion correction applied to stress images. Patient was trouble laying still due to hip pain Summed Stress Score: 2 Summed Rest Score: 2 Summed Difference Score: 0 PERFUSION FINDINGS Small area of decreased tracer uptake was noted in the apical lateral region and LV apex. No significant reversibility was noted in these regions FUNCTIONAL RESULTS (calculated via Gated SPECT) Stress Image LV EF (%): 64 Stress EDV (mL):69 TID: 0.97 Stress ESV (mL):25 FUNCTIONAL FINDINGS: Segmental wall motion analysis revealing mild hypokinesia of the LV apex IMPRESSIONS 1. Myocardial perfusion imaging revealing a small area of persistent decreased tracer uptake in the apical lateral and LV apex suggestive of myocardial scarring versus attenuation artifact. 2. Normal LV ejection fraction of 64%. 3. LV wall motion analysis revealing mild hypokinesia of the LV apex. 4. Normal LV volume No significant coronary ischemia, based on the above findings Dr Clement Murrieta MD FACC (Electronically Signed) Final Date: 12 December 2020 08:24 S
[2020-12-11] MEDS: regadenoson 0.4 Mg/5 ml Syringe IVP (10:46)
[2020-12-11 11:00] VITALS: BP 133/82; PULSE 88
== END 2020-12-11 08:44 | disposition home or self-care (01) ==
LOC: CDL 08:46
PROVIDERS: PCP Family Medicine; Visit Provider Nurse Practitioner Family
DX: R06.02 Shortness of breath (principal)
CPT/HCPCS: 78452; 93017; A9500; J2785

== ENCOUNTER → 2021-01-14 12:47 | Outpatient (BNVA) | payer MEDICARE, MEDICAID, SELFPAY | PROVIDERS: PCP Family Medicine; Visit Provider Urology | DX: N39.0 Urinary tract infection, site not specified (principal) | CPT/HCPCS: 81003; 87077; 87086; 87184 ==

== ENCOUNTER 2021-04-27 12:35 | Outpatient (CLI) | payer MEDICARE, MEDICAID, SELFPAY ==
[2021-04-27 13:05] LABS: INR 1.19 (0.8-1.2)
== END 2021-04-27 12:36 | disposition home or self-care (01) ==
LOC: LAB 12:39
PROVIDERS: PCP Family Medicine; Visit Provider Physician Assistant
DX: I10 Essential (primary) hypertension (principal)
CPT/HCPCS: 85610

== ENCOUNTER → 2021-09-23 10:34 | Outpatient (BNVA) | payer MEDICARE, MEDICAID, SELFPAY | PROVIDERS: PCP Family Medicine; Visit Provider Otolaryngology | DX: J38.01 Paralysis of vocal cords and larynx, unilateral (principal); R13.10 Dysphagia, unspecified; R49.0 Dysphonia | CPT/HCPCS: 31575; 99205 ==

== ENCOUNTER → 2021-12-16 08:22 | Outpatient (BNVA) | payer MEDICARE, MEDICAID, SELFPAY | PROVIDERS: PCP Family Medicine; Visit Provider Otolaryngology | DX: H91.93 Unspecified hearing loss, bilateral (principal) | CPT/HCPCS: 99213 ==

== ENCOUNTER → 2022-01-15 12:48 | Outpatient (BNVA) | payer MEDICARE, MEDICAID, SELFPAY | PROVIDERS: PCP Family Medicine; Visit Provider Nurse Practitioner Family | DX: N39.0 Urinary tract infection, site not specified (principal) | CPT/HCPCS: 81003; 99213 ==

== ENCOUNTER 2022-02-20 09:54 | Outpatient (CLI) | payer MEDICARE, MEDICAID, SELFPAY ==
--- NOTE | 2022-02-20 10:00 | FL_ITS ---
WS: [id number] FL barium swallow modifd [id number] REASON FOR EXAM: Recent neck surgery. Rule out cervical esophageal abnormality. FLUOROSCOPY TIME: 2min [id number] # OF SPOT FILMS: 1 FINDINGS: Examination was supervised by the speech therapy department. The patient in the upright position, the swallowing of varying consistency barium was monitored and r ecorded fluoroscopically. No aspiration was identified. Detailed analysis and report of the swallowing will be rendered by the speech therapy department. FL/FL barium swallow modifd [id number] IMPRESSION: Modified barium swallow as above.
== END 2022-02-20 09:55 | disposition home or self-care (01) ==
LOC: RAD 09:54
PROVIDERS: PCP Family Medicine; Visit Provider Otolaryngology
DX: R13.10 Dysphagia, unspecified (principal)
CPT/HCPCS: 74230; 92611

== ENCOUNTER → 2022-09-21 13:11 | Outpatient (BNVA) | payer MEDICARE, MEDICAID, SELFPAY | PROVIDERS: PCP Family Medicine; Visit Provider Internal Medicine | DX: I25.10 Atherosclerotic heart disease of native coronary artery without angina pectoris (principal); I48.11 Longstanding persistent atrial fibrillation; I11.0 Hypertensive heart disease with heart failure; I50.32 Chronic diastolic (congestive) heart failure; Z79.01 Long term (current) use of anticoagulants | CPT/HCPCS: 36415; 80048; 83880 ==

== ENCOUNTER → 2022-09-21 13:11 | Outpatient (BNVA) | payer MEDICARE, MEDICAID, SELFPAY | PROVIDERS: PCP Family Medicine; Visit Provider Internal Medicine | DX: I25.10 Atherosclerotic heart disease of native coronary artery without angina pectoris (principal); I48.11 Longstanding persistent atrial fibrillation; I11.0 Hypertensive heart disease with heart failure; I50.32 Chronic diastolic (congestive) heart failure; Z79.01 Long term (current) use of anticoagulants | CPT/HCPCS: 99214 ==

== ENCOUNTER → 2022-10-26 13:10 | Outpatient (BNVA) | payer MEDICARE, MEDICAID, SELFPAY | PROVIDERS: PCP Family Medicine; Referring Provider Dermatology; Visit Provider Specialist | DX: M17.11 Unilateral primary osteoarthritis, right knee (principal); M21.061 Valgus deformity, not elsewhere classified, right knee | CPT/HCPCS: 20610; 73560; 73565; 99204; J1100; J2795; J3301 ==

== ENCOUNTER → 2023-02-04 10:10 | Outpatient (BNVA) | payer MEDICARE, MEDICAID, SELFPAY | PROVIDERS: PCP Family Medicine; Visit Provider Specialist | DX: M17.11 Unilateral primary osteoarthritis, right knee (principal); Z71.89 Other specified counseling | CPT/HCPCS: 20610; J1100; J2795; J3301 ==

== ENCOUNTER → 2023-03-08 10:30 | Outpatient (BNVA) | payer MEDICARE, MEDICAID, SELFPAY | PROVIDERS: PCP Family Medicine; Visit Provider Specialist | DX: M17.0 Bilateral primary osteoarthritis of knee | CPT/HCPCS: 73560; 73565; 99214; J1100; J2795; J3301 ==

== ENCOUNTER → 2023-06-28 12:19 | Outpatient (BNVA) | payer MEDICARE, MEDICAID, SELFPAY | PROVIDERS: PCP Family Medicine; Visit Provider Internal Medicine | DX: I25.10 Atherosclerotic heart disease of native coronary artery without angina pectoris (principal); I48.11 Longstanding persistent atrial fibrillation; I11.0 Hypertensive heart disease with heart failure; I50.32 Chronic diastolic (congestive) heart failure; Z79.01 Long term (current) use of anticoagulants; Z79.82 Long term (current) use of aspirin | CPT/HCPCS: 99214 ==

== ENCOUNTER → 2023-07-09 08:54 | Outpatient (BNVA) | payer MEDICARE, MEDICAID, SELFPAY | PROVIDERS: PCP Family Medicine; Visit Provider Specialist | DX: M17.11 Unilateral primary osteoarthritis, right knee (principal); M21.061 Valgus deformity, not elsewhere classified, right knee | CPT/HCPCS: 20610; J1100; J2795; J3301 ==

== ENCOUNTER 2023-08-12 07:26 | Outpatient (CLI) | payer MEDICARE, MEDICAID, SELFPAY ==
[2023-08-12 08:03] VITALS: BMI 25.2
--- NOTE | 2023-08-12 08:06 | ECG_ITS ---
[facility] Test Date: 2023-08-12 Pat Name: Trini Tinoco Department: Room: Gender: Female Contact Worker Lithography: : 1945 Requested By: Jonathan Tariq Order Number: [id number] Yasmeen MD: Jonathan Tariq M.D. Interpretive Statements NAME OF STUDY: LEXISCAN SESTAMIBI STRESS TEST INDICATION: [Chest Pain; Shortness of Breath] Procedure: At the baseline, the blood pressure was 131/102 mmHg with a heart rate of 108 bpm. The electrocardiogram showed atrial fibrillation with left axis deviation. The Lexiscan was infused over a period of 20 seconds. A total of 0.4 mg of Lexiscan was infused. The stress phase was continued for a total of 5 minutes. Heart rate was at the end of stress phase was 116 bpm and a blood pressure of 118/88 mmHg. The EKG at the peak infusion revealed atrial fibrillation with RVR with no significant ST-T wave changes. Sestamibi was injected 20 seconds after the Lexiscan infusion. Blood pressure at the end of recovery phase was 120/76 mmHg with a heart rate of 117 bpm. Conclusion: 1. Normal EKG response to Lexiscan infusion 2. No Lexiscan induced chest pain or cardiac arrhythmia. 3. Normal blood pressure and heart rate response. 4. Sestamibi/sestamibi perfusion scan pending; see separate report. Electronically Signed On 08-19-2023 12:20:50 CDT by Jonathan Tariq M.D. [id number]
--- NOTE | 2023-08-12 08:06 | NMCV_ITS ---
NM kelly perf SPECT r/s* [id number] Trini Tinoco Age: 78 Gender: F : 1945 Exam Date: 08/12/2023 08:36 Ordering Phys: Jonathan Tariq M.D ([email or web address]) Technologist: SONIA Cano Exam Location: [facility] Indications: CHEST PAIN STRESS TEST Please see separate stress test report in Ephiphany for full findings IMAGE PROTOCOL Rest/Stress 1 Lexiscan Day Radiopharmaceutical Dose (mCi) Administration Site Administered by Rest: Tc-99m 10.7 IV SONIA Faith Sestamibi Stress:Tc-99m 32.6 IV SONIA Faith Sestamibi Rest: 12-Aug-2023 60 Discovery 630 Stress: 12-Aug-2023 30 Discovery 630 0.4mg Lexiscan. Supine position only as patient was unable to lay prone. SPECT RESULTS Technical Quality: Excellent Raw Data Analysis: Normal Image Corrections: No attenuation or motion correction applied Summed Stress Score: 0 Summed Rest Score: 0 Summed Difference Score: 0 PERFUSION FINDINGS SPECT images demonstrate homogeneous tracer distribution throughout the myocardium. FUNCTIONAL RESULTS (calculated via Gated SPECT) Stress Image LV EF (%): 78 Stress EDV (mL):64 TID: 0.93 Stress ESV (mL):14 FUNCTIONAL FINDINGS: There is normal left ventricular systolic function. IMPRESSIONS 1. Normal myocardial perfusion imaging with no evidence of ischemia 2. LV systolic function is normal Jonathan Tariq MD (Electronically Signed) Final Date: 12 August 2023 10:30 S
[2023-08-12] MEDS: regadenoson 0.4 Mg/5 ml Syringe 0.400000000000000022 MG IVP (09:17)
[2023-08-12 09:36] VITALS: BP 122/76; PULSE 116
== END 2023-08-12 07:27 | disposition home or self-care (01) ==
LOC: CDL 07:28
PROVIDERS: PCP Family Medicine; Visit Provider Internal Medicine
DX: R07.9 Chest pain, unspecified (principal)
CPT/HCPCS: 36415; 78452; 93017; 96374; A9500; J2785

== ENCOUNTER → 2023-10-08 09:23 | Outpatient (BNVA) | payer MEDICARE, MEDICAID, SELFPAY | PROVIDERS: PCP Family Medicine; Visit Provider Specialist | DX: M25.569 Pain in unspecified knee (principal); M17.11 Unilateral primary osteoarthritis, right knee; Z71.89 Other specified counseling | CPT/HCPCS: 20610; J1100; J2795; J3301 ==

== ENCOUNTER → 2023-11-30 13:26 | Outpatient (BNVA) | payer MEDICARE, MEDICAID, SELFPAY | PROVIDERS: PCP Family Medicine; Visit Provider Internal Medicine | DX: I25.10 Atherosclerotic heart disease of native coronary artery without angina pectoris (principal); I48.11 Longstanding persistent atrial fibrillation; Z79.01 Long term (current) use of anticoagulants; I11.0 Hypertensive heart disease with heart failure; I50.32 Chronic diastolic (congestive) heart failure | CPT/HCPCS: 99214 ==

== ENCOUNTER → 2024-01-14 09:34 | Outpatient (BNVA) | payer MEDICARE, MEDICAID, SELFPAY | PROVIDERS: PCP Family Medicine; Visit Provider Specialist | DX: M17.11 Unilateral primary osteoarthritis, right knee (principal); Z71.89 Other specified counseling | CPT/HCPCS: 20610; J1100; J2795; J3301 ==

== ENCOUNTER → 2024-04-28 10:13 | Outpatient (BNVA) | payer MEDICARE, MEDICAID, SELFPAY | PROVIDERS: PCP Family Medicine; Visit Provider Specialist | DX: M17.11 Unilateral primary osteoarthritis, right knee (principal); Z71.89 Other specified counseling | CPT/HCPCS: 20610; J1100; J2795; J3301 ==

== ENCOUNTER → 2024-08-09 09:59 | Outpatient (BNVA) | payer MEDICARE, MEDICAID, SELFPAY | PROVIDERS: PCP Family Medicine; Visit Provider Specialist | DX: M17.11 Unilateral primary osteoarthritis, right knee (principal) | CPT/HCPCS: 20610; J1100; J2795; J3301; J9999 ==

== ENCOUNTER → 2024-08-29 15:09 | Outpatient (BNVA) | payer MEDICARE, MEDICAID, SELFPAY | PROVIDERS: PCP Family Medicine; Visit Provider Internal Medicine | DX: I25.10 Atherosclerotic heart disease of native coronary artery without angina pectoris (principal); I48.11 Longstanding persistent atrial fibrillation; I11.0 Hypertensive heart disease with heart failure; I50.32 Chronic diastolic (congestive) heart failure; I25.2 Old myocardial infarction; Z79.01 Long term (current) use of anticoagulants | CPT/HCPCS: 99214 ==

== ENCOUNTER 2024-09-28 10:03 | Outpatient (CLI) | payer MEDICARE, MEDICAID, SELFPAY ==
--- NOTE | 2024-09-28 10:15 | USCV_ITS ---
Trini Tinoco Age: 79 Gender: F : 1945 Exam Date: 09/28/2024 10:29 Ordering Phys: Jonathan Tariq M.D ([email or web address]) Technologist: JAMES Exam Location: [facility] [place] Indication: SoB BP: 110 / 60 HR: 110 Rhythm: Sinus Technical Quality: Adequate MEASUREMENTS (Male / Female) Normal Values 2D ECHO LV Diastolic Diameter PLAX 4.4 cm 4.2 - 5.9 / 3.9 - 5.3 cm IVS Diastolic Thickness 1.0 cm 0.6 - 1.0 / 0.6 - 0.9 cm IVS Systolic Thickness 1.8 cm LVPW Diastolic Thickness 1.3 cm 0.6 - 1.0 / 0.6 - 0.9 cm LVPW Systolic Thickness 1.6 cm LVOT Diameter 2.0 cm LV Ejection Fraction 2D Teich 56.1 % LV Ejection Fraction MOD 4C 59.2 % LV Ejection Fraction MOD 2C 53.5 % LV Ejection Fraction 2C AL 57.0 % LA Diameter 4.9 cm RA Systolic Volume 4C AL 51.7 ml RA Systolic Volume 4C MOD 51.9 ml LA Sys Volume AL 72.9 cm cubed LA Sys Volume Index AL 40.1 cm cubed/m squared Aorta at Sinotubular Diameter 2.8 cm M-MODE LA Ao Ratio MM 2.5 AV Cusp Separation MM 0.9 cm DOPPLER AV Peak Velocity 127.0 cm/s AV Area Cont Eq vti 1.9 cm squared AV Area Cont Eq pk 1.8 cm squared MV Peak Velocity 107.0 cm/s MV Area PHT 6.7 cm squared Mitral E to A Ratio 2.9 TR Peak Velocity 323.0 cm/s TR Peak Gradient 41.7 mmHg TV Peak E Velocity 116.0 cm/s PV Peak Velocity 113.0 cm/s FINDINGS Left Ventricle Left ventricle is normal in size. LV systolic function is normal with EF of 55-60%. No regional wall motion abnormalities are seen. Right Ventricle Normal in size and function Right Atrium Dilated Left Atrium Dilated Mitral Valve Structurally normal mitral valve. Mild mitral regurgitation Aortic Valve Structurally normal aortic valve. No significant stenosis. Mild aortic regurgitation. Tricuspid Valve Mild to moderate tricuspid regurgitation. RVSP is 40-45 mmHg. This is consistent with mild pulmonary hypertension Pulmonic Valve Not well visualized Pericardium Small sized pericardial effusion Aorta Normal in size IVC Not well visualized CONCLUSIONS LV systolic function is normal with EF of 55-60% Biatrial dilation Mild mitral regurgitation Mild aortic regurgitation Mild to moderate tricuspid regurgitation Mild pulmonary hypertension Small sized pericardial effusion Jonathan Tariq MD (Electronically Signed) Final Date: 19 October 2024 09:52 S
== END 2024-09-28 10:04 | disposition home or self-care (01) ==
LOC: RAD 10:06
PROVIDERS: PCP Family Medicine; Visit Provider Internal Medicine
DX: R06.02 Shortness of breath (principal); I34.0 Nonrheumatic mitral (valve) insufficiency; I35.1 Nonrheumatic aortic (valve) insufficiency; I07.1 Rheumatic tricuspid insufficiency; I27.20 Pulmonary hypertension, unspecified; I31.39 Other pericardial effusion (noninflammatory)
CPT/HCPCS: 93306

== ENCOUNTER 2024-10-03 08:54 | Outpatient (CLI) | payer MEDICARE, MEDICAID, SELFPAY ==
[2024-10-03 09:53] VITALS: BMI 24.5
--- NOTE | 2024-10-03 09:55 | ECG_ITS ---
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 Interpretive Statements LEXISCAN SESTAMIBI STRESS TEST Procedure: At the baseline, the blood pressure was 126/85 mmHg with a heart rate of 101 bpm. The electrocardiogram showed normal atrial fibrillation with RVR and non-specific ST and T's. The Lexiscan was infused over a period of 20 seconds. A total of 0.4 mg of Lexiscan was infused. The stress phase was continued for a total of 5 minutes. Heart rate was at the end of stress phase was 118 bpm and a blood pressure of 154/107 mmHg. The EKG at the peak infusion revealed atrial fibrillation with RVR with no significant ST-T wave changes. Sestamibi was injected 20 seconds after the Lexiscan infusion. Blood pressure at the end of recovery phase was 102/75 mmHg with a heart rate of 121 bpm. Conclusion: 1. Normal EKG response to Lexiscan infusion 2. No Lexiscan induced chest pain or cardiac arrhythmia. 3. Normal blood pressure and heart rate response. 4. Sestamibi/sestamibi perfusion scan pending; see separate report. Electronically Signed On 11-21-2024 17:04:06 CDT by Jonathan Tariq M.D. [id number] [id number]
--- NOTE | 2024-10-03 09:56 | NMCV_ITS ---
NM kelly perf SPECT r/s* [id number] Trini Tinoco Age: 79 Gender: F : 1945 Exam Date: 10/03/2024 10:17 Ordering Phys: Jonathan Tariq M.D ([email or web address]) Technologist: SONIA Hung Exam Location: [facility] Indications: CP STRESS TEST [facility] IMAGE PROTOCOL Rest/Stress 1 Lexiscan Day Radiopharmaceutical Dose (mCi) Administration Site Administered by Rest: Tc-99m 10.4 IV Yas Salinas, DATA SME Sestamibi Stress:Tc-99m 32.5 IV Yas Tatumgle, DATA SME Sestamibi Rest: 03-Oct-2024 60 Discovery 630 Stress: 03-Oct-2024 30 Discovery 630 0.4mg Lexiscan. Supine position only as patient was unable to lay prone. SPECT RESULTS Technical Quality: Good Raw Data Analysis: Normal Image Corrections: No attenuation or motion correction applied Summed Stress Score: 1 Summed Rest Score: 0 Summed Difference Score: 1 PERFUSION FINDINGS SPECT images demonstrate homogeneous tracer distribution throughout the myocardium. FUNCTIONAL RESULTS (calculated via Gated SPECT) Stress Image LV EF (%): 85 Stress EDV (mL):59 TID: 1.14 Stress ESV (mL):9 FUNCTIONAL FINDINGS: There is normal left ventricular systolic function. IMPRESSIONS 1. Normal myocardial perfusion imaging with no evidence of ischemia. 2. LV systolic function is normal Jonathan Tariq MD (Electronically Signed) Final Date: 06 Oct 2024 11:32 S
[2024-10-03] MEDS: regadenoson 0.4 Mg/5 ml Syringe IVP (10:46)
[2024-10-03 11:03] VITALS: BP 129/80; PULSE 96
== END 2024-10-03 08:55 | disposition home or self-care (01) ==
LOC: CDL 08:59
PROVIDERS: PCP Family Medicine; Visit Provider Internal Medicine
DX: R07.9 Chest pain, unspecified (principal)
CPT/HCPCS: 36415; 78452; 93017; 96374; A9500; J2785

== ENCOUNTER → 2024-11-10 09:33 | Outpatient (BNVA) | payer MEDICARE, MEDICAID, SELFPAY | PROVIDERS: PCP Family Medicine; Visit Provider Specialist | DX: M17.11 Unilateral primary osteoarthritis, right knee (principal) | CPT/HCPCS: 20610; J1100; J2795; J3301; J9999 ==

== ENCOUNTER → 2024-12-04 09:16 | Outpatient (BNVA) | payer MEDICARE, MEDICAID, SELFPAY | PROVIDERS: PCP Family Medicine; Visit Provider Specialist | DX: M17.12 Unilateral primary osteoarthritis, left knee (principal) | CPT/HCPCS: 20610; 73560; 73565; 99214; J1100; J2795; J3301; J9999 ==

== ENCOUNTER → 2025-02-14 14:08 | Outpatient (BNVA) | payer MEDICARE, MEDICAID, SELFPAY | PROVIDERS: PCP Family Medicine; Visit Provider Specialist | DX: M17.11 Unilateral primary osteoarthritis, right knee (principal) | CPT/HCPCS: 20610; J1100; J2795; J3301; J9999 ==

== ENCOUNTER → 2025-02-27 13:48 | Outpatient (BNVA) | payer MEDICARE, MEDICAID, SELFPAY | PROVIDERS: PCP Family Medicine; Visit Provider Internal Medicine | DX: I48.91 Unspecified atrial fibrillation (principal); I25.10 Atherosclerotic heart disease of native coronary artery without angina pectoris; I11.0 Hypertensive heart disease with heart failure; I50.32 Chronic diastolic (congestive) heart failure; Z79.01 Long term (current) use of anticoagulants | CPT/HCPCS: 99213 ==